=== PATIENT | female | born 1970 | race African-American/Black ===

== ENCOUNTER 2016-10-26 15:16 | Emergency (ER) | payer SELFPAY ==
[~2016-10-26] VITALS: Ht 167.6 cm; Wt 85.0 kg
[2016-10-26 15:20] VITALS: Ht 167.6 cm; Wt 85.0 kg
[2016-10-26] MEDS ORDERED: KETOROLAC 30 MG INJ IM STA (15:46)
--- NOTE | 2016-10-26 16:23 | ERD ---
ER Documentation Chief Complaint Date/Time DATE: 10/26/16 TIME: 16:17 Chief Complaint pt bib self with bilatteral leg pain for a few days HPI Patient is a 45-year-old female with a past medical history of TIA who presents to the emergency department for concerns of bilateral leg pain 2 days. Patient is a mailer. Patient reports walking daily for the last 15 years. Patient states she developed right calf pain and swelling 2 days ago. Patient does report pain with ambulating. Patient states she has been avoiding bearing weight to her right extremity secondary to the pain. Patient states as a result, she has now developed left leg pain due to compensating her weight on her right leg. Patient denies any falls or trauma. She denies any fevers, chills, nausea, vomiting, chest pain, shortness of breath, headache, dizziness or LOC. Patient is currently taking Depo-Provera every 3 months. Patient denies any recent surgeries or prolonged sitting. Denies previous history DVT or PE. Patient is currently only taking aspirin on a daily basis ROS All systems reviewed and are negative except as per history of present illness. Medications Home Meds Active Scripts Ibuprofen* (Motrin*) 600 Mg Tab, 600 MG PO Q6, #30 TAB Prov:TREV CASTANEDA PA-C 10/26/16 Allergies Allergies: Coded Allergies: No Known Allergy (Unverified , 10/26/16) Physical Exam Vitals Vital Signs Date Time Temp Pulse Resp B/P Pulse Ox O2 Delivery O2 Flow Rate FiO2 10/26/16 15:20 98.3 101 18 127/65 99 Physical Exam GENERAL: Well-developed, well-nourished female. Appears in no acute distress. Speaking in full sentences HEAD: Normocephalic, atraumatic. EYES: Pupils are equally reactive bilaterally. EOMs grossly intact. No conjunctival erythema. ENT: Moist mucous membranes. No uvula deviation. No kissing tonsils. NECK: Supple. No meningismus. Normal range of motion of the neck. LUNG: Clear to auscultation bilaterally. No rhonchi, wheezing, rales or coarse breath sounds. HEART: Regular rate and rhythm. No murmurs, rubs or gallops. EXTREMITIES: Equal pulses bilaterally. No peripheral clubbing, cyanosis or edema. NEUROLOGIC: Alert and oriented. Moving all four extremities without any difficulty. Normal speech. Steady gait. SKIN: Normal color. Warm and dry. No rashes or lesions. BILATERAL LE: No deformity, erythema, ecchymosis noted bilaterally. Right calf does appear more swollen compared to the left calf.. Skin intact. Full ROM of knee, ankle bilaterally. Tender to palpation of the right calf muscle. Sensation intact to light touch. Neurovascularly intact. (Able to plantarflex, dorsiflex, brielle foot, invert foot, raise big toe.) 2+ DP and DT pulses. Results 24 hrs Current Medications Medications (Trade) Dose Ordered Sig/Diogenes Route PRN Reason Start Time Stop Time Status Last Admin Dose Admin Ketorolac Tromethamine (Toradol) 30 mg ONCE STAT IM 10/26/16 15:46 10/26/16 15:50 DC 10/26/16 16:39 Procedures/MDM ED COURSE: The patient was stable throughout ED course. I kept the patient and/or family informed of laboratory and diagnostic imaging results throughout the ED course. DIAGNOSTIC IMAGING: Read by radiologist. Patient: ANRDEAS MORELAND : 1970 Age: 45 Sex: F MR #: [id number] DOS: 10/26/16 1546 Ordering MD: TREV CASTANEDA PA-C Location: [facility] Room/Bed: PROCEDURE: Bilateral lower extremity venous ultrasound. CLINICAL INDICATION: Calf swelling TECHNIQUE: Multiple sonographic images of the bilateral lower extremity deep venous system was obtained utilizing grayscale, color-flow, compressive sonography and doppler imaging with augmentation, as appropriate. The images were reviewed on a PACS workstation. COMPARISON: None. FINDINGS: There is normal compressibility and flow within the bilateral common femoral, superficial femoral, posterior tibial, peroneal and popliteal veins. IMPRESSION: No sonographic evidence for deep venous thrombosis within the lower extremities bilaterally. RPTAT: EE Physician Shannan Date Time Electronically viewed and signed by Physician Shannan on 10/26/2016 16: 30 RC/ CC: TREV CASTANEDA PA-C MEDICATIONS GIVEN: Toradol IM Patient tolerated medication well with no adverse reactions. Patient reported improvement in pain. MEDICAL DECISION MAKING: This is a 45-year-old female with a history of TIA presents emergency department with concerns of bilateral leg pain 2 days. Patient does currently take Depo-Provera. Patient denies any history of DVT, PE, recent travel, recent surgery. Vital signs were reviewed. Patient was afebrile. The patient denies any trauma or falls, x-ray imaging was indicated at this time. Bilateral doppler ultrasound was obtained. Bilateral Doppler ultrasound showed no evidence of DVT. At this time, patient's presentation is most consistent with musculoskeletal pain in her bilateral legs. Low suspicion for femur fracture, patella fracture, tibial plateau fracture, septic joint, gout, popliteal cyst, prepatellar bursitis, patellofemoral syndrome, osteomyelitis, DVT or compartment syndrome. At this time, unable to rule out any meniscus and knee ligament injuries. PRESCRIPTIONS: Ibuprofen DISCHARGE: At this time, patient is stable for discharge and outpatient management. RICE therapy and ROM exercises were advised to avoid stiffness. I have instructed the patient to follow-up with his/her primary care physician in 1-2 days. I have discussed with the patient the possibility of needing to see an supply specialist for further workup and imaging if the pain persists. I have instructed the patient to promptly return to the ER for any new or worsening symptoms including increased pain, swelling, redness, warmth or fever. The patient and/or family expressed understanding of and agreement with this plan. All questions were answered. Home care instructions were provided. Departure Diagnosis: Primary Impression: Bilateral leg pain Condition: Stable Patient Instructions: Possible Causes of Low Back or Leg Pain Referrals: [facility] YOU HAVE RECEIVED A MEDICAL SCREENING EXAM AND THE RESULTS INDICATE THAT YOU DO NOT HAVE A CONDITION THAT REQUIRES URGENT TREATMENT IN THE EMERGENCY DEPARTMENT. FURTHER EVALUATION AND TREATMENT OF YOUR CONDITION CAN WAIT UNTIL YOU ARE SEEN IN YOUR DOCTORS OFFICE WITHIN THE NEXT 1-2 DAYS. IT IS YOUR RESPONSIBILITY TO MAKE AN APPOINTMENT FOR FOLOW-UP CARE. IF YOU HAVE A PRIMARY DOCTOR --you should call your primary doctor and schedule an appointment IF YOU DO NOT HAVE A PRIMARY DOCTOR YOU CAN CALL OUR PHYSICIAN REFERRAL HOTLINE AT IF YOU CAN NOT AFFORD TO SEE A PHYSICIAN YOU CAN CHOSE FROM THE FOLLOWING [facility] [address] [facility] [address] [facility] [address] [facility] [address] [facility] [address] [facility]. [facility] [address] [facility]. [facility] YOU HAVE RECEIVED A MEDICAL SCREENING EXAM AND THE RESULTS INDICATE THAT YOU DO NOT HAVE A CONDITION THAT REQUIRES URGENT TREATMENT IN THE EMERGENCY DEPARTMENT. FURTHER EVALUATION AND TREATMENT OF YOUR CONDITION CAN WAIT UNTIL YOU ARE SEEN IN YOUR DOCTORS OFFICE WITHIN THE NEXT 1-2 DAYS. IT IS YOUR RESPONSIBILITY TO MAKE AN APPOINTMENT FOR FOLOW-UP CARE. IF YOU HAVE A PRIMARY DOCTOR --you should call your primary doctor and schedule and appointment IF YOU DO NOT HAVE A PRIMARY DOCTOR YOU CAN CALL OUR PHYSICIAN REFERRAL HOTLINE AT . IF YOU CAN NOT AFFORD TO SEE A PHYSICIAN YOU CAN CHOSE FROM THE FOLLOWING [facility] INSTITUTIONS: [facility] [address] [place] [address] [facility] [address] [place] [address] [facility] [address] [place] [address] Additional Instructions: Call your primary care doctor TOMORROW for an appointment during the next 1-2 days.See the doctor sooner or return here if your condition worsens before your appointment time. TREV CASTANEDA PA-C Oct 26, 2016 16:23
--- NOTE | 2016-10-26 16:31 | RADRPT ---
PROCEDURE: Bilateral lower extremity venous ultrasound. CLINICAL INDICATION: Calf swelling TECHNIQUE: Multiple sonographic images of the bilateral lower extremity deep venous system was obt ained utilizing grayscale, color-flow, compressive sonography and doppler imaging with augmentation, as appropriate. The images were reviewed on a PACS workstation. COMPARISON: None. FINDINGS: There is normal compressibility and flow within the bilateral common femoral, superficial femoral, p osterior tibial, peroneal and popliteal veins. IMPRESSION: No sonographic evidence for deep venous thrombosis within the lower extremities bilaterally. RPTAT: EE Physician Shannan Date Time Electronically viewed and signed by Physician Shannan on 10/26/2016 16:30 /
[2016-10-26] MEDS ORDERED: IBUP-1542 PO (17:18)
== END 2016-10-26 17:49 | disposition home or self-care (01) ==
LOC: FTE 15:16
DX: M79.605 Pain in left leg (principal); M79.604 Pain in right leg
CPT/HCPCS: 93970; 96372; 99285; J1885

== ENCOUNTER 2017-11-24 18:42 | Inpatient (IN) | END 2017-11-27 20:23 | disposition home or self-care (01) | DRG 638 ==